=== PATIENT | male | born 1955 | race Caucasian/White ===

== ENCOUNTER → 2016-05-16 | Outpatient (CLI) | payer OTHER ==
--- NOTE | 2016-05-17 06:02 | PAP/PSG TECHNICIAN REPORT ---
[facility] Leasing Sales Consultant Polysomnogram Report Study name: None Report date: 05/17/2016 Study date: 05/16/2016 Referring Physician: SRNII VILLAGOMEZ DO, DO Name: DRISS ROBERTS Interpreting Physician: Srini Villagomez D.O. Date of : 1955 Leasing Sales Consultant: DARRIN Agudelo. Sex: Male Age: 60 StudyType: PSG Weight: 285 lbs Height: 60 years, Height 6' 0" Neck Circum:18.25inches BMI: 38.65 Medications: Amlodipine Besylate 2.5mg, Atorvastatin 80mg, Bupropion HCl ER 150mg, Clopidogrel Bisulfate 75mg, Furosemide 40mg, Klor -Con M 20-20 MEQ, Lisinopril 5mg, Tamsulosin HCl 0.4mg Patient History Study started on room air with no ETCO2 monitoring in room #6. 60 yr old male here tonight for a diagnostic psg. He complains of EDS and dry mouth in the mornings. He states that he is a mouth breather. His mother has sleep apnea. He is a smoker and some "spots" were found in his lungs on a recent scan, according to the patient. He can fall asleep anytime of the day and never feels rested. His neck circ=18.25inches. Parameters Monitored NPSG: E1-M2, E2-M1, Fp1-M2, Fp2-M1, F3-M2, F4-M2, F4-M1, C3-M2, C4-M2, C4-M1, O1-M2, O2-M2, O2-M1, T3-M2, T4-M1, P3-M2, P4-M1, CHIN1, CHIN2, HR, EKG, Legs, PFLOW, SNOR, FLOW, CFLOW, Tidal Volume, THOR, ABDO, SpO2, PLTH, CPRESS, ETCO2 Wave, ETCO2, pH Sleep Architecture Sleep Stages Time at Lights Off 9:56:00 PM STAGES Time (min.) TST (%) Time at Lights On 5:17:00 AM Wake 162.0 -- Total Recording Time (TRT) 441.00 min. N1 13.5 5 Total Sleep Period (TSP) 379.5 min. N2 157.0 56 Total Sleep Time (TST) 279.0min. N3 73.0 26 Awake Time 162.0 min. REM 35.5 13 Wake after Sleep Onset 100.5 min. Sleep Efficiency (SE) 63 % Sleep Onset Latency (TIO) 61.5 min. Number of Stage 1 Shifts None Awakenings 10 Stage Changes 49 Number of REM periods 7 REM 35.5 13 REM Latency 84.0 min. NREM 243.5 87 Body Position Analysis Supine Right Left Side Prone Vertical Total Sleep Time (min.) 50.9 196.0 83.0 279.00 0.0 0.0 Total Sleep Time (%) 0% 70% 30% 100 0% N/A% Total Sleep Time REM (min.) 0.0 26.0 9.5 None 0.0 0.0 Total Sleep Time NREM (min.) 0.0 170.0 73.5 None 0.0 0.0 Intermittent Wake (min.) 50.9 23.1 88.0 None 0.0 0.0 Total Sleep Period (%) 0% None None None None None Arousals Myoclonus (PLM) * Events Count Index Events Count Index Spontaneous 8 2 Events Awake (PLMW) 131 48.5 Respiratory 0 0.2 Events Asleep w/ Arousal (PLMA) 2 0.4 PLM 2 0 Events Asleep w/o Arousal (PLMS) 80 17.2 Snoring 2 0 Total Asleep 82 17.6 Total 12 3 Total 213 29 Respiratory Analysis * CA OA MA CH H RERA Total Count 0 1 0 0 11 0 12 Index 0.0 0.2 0.0 0 2.4 0 2.6 Mean Duration 0.0 55.9 0.0 0.00 16.7 0.0 20.0 Longest Duration 0.0 55.9 0.0 0.00 0.0 0.0 55.9 Respiratory Event Summary Total Supine ~Supine Right Left Prone REM NREM Apneas Count 1 N/A 1 1 0 N/A 0 1 Index 0.2 N/A 0 0.3 0.0 N/A 0 0 Hypopneas (4% Desat) Count 11 N/A 11 6 5 N/A 11 0 Index 2.4 N/A 2 1.8 3.6 N/A 18.6 0.0 Apneas & All Hypopneas Count 12 N/A 12 7 5 N/A 11 1 Index 2.6 N/A 3 2 4 N/A 18.6 0.2 Respiratory Events (Post Office Markup Clerk+All Hyp+RERA) Count 12 N/A 12 7 5 N/A 11 1 Index 2.6 N/A 3 2.1 3.6 N/A 18.6 0.2 Respiratory Related Arousal Count 0 N/A 1 1 0 N/A 1 0 Index 0.2 N/A 0 0 0 N/A 2 0 Snoring Analysis Supine Right Left Prone REM NREM Total Snore duration 12.8 min Snores count N/A 533 412 N/A 17 928 945 Snore mean duration 0.8 Sec Snores index N/A 163 298 N/A 28.7 228.7 203.2 TST with snoring (%) 4.6% Desaturation Event Summary: Minimum %SpO2 Event Count Mean/Min/Max Duration(sec.) Desaturation Index % Time In Bed > 90 31 35.7 / 18.0 / 57.8 70.1 6.2 86 - 90 40 29.1 / 8.8 / 56.0 8.3 66.9 81 - 85 4 29.2 / 13.0 / 56.0 2.1 26.8 76 - 80 0 N/A 0.0 0.1 71 - 75 0 N/A 0.0 0.0 66 - 70 0 N/A 0.0 0.0 61 - 65 0 N/A 0.0 0.0 56 - 60 0 N/A 0.0 0.0 51 - 55 0 N/A 0.0 0.0 < 50 0 N/A 0.0 0.0 Total REM NREM Awake <50% 0.0 min. 0.0 min. 0.0 min. 0.0 min. 51 - 60% 0.0 min. 0.0 min. 0.0 min. 0.0 min. 61 - 70% 0.0 min. 0.0 min. 0.0 min. 0.0 min. 71 - 80% 0.3 min. 0.2 min. 0.0 min. 0.1 min. 81 - 90% 404.3 min. 33.7 min. 238.5 min. 132.1 min. 91 - 100% 26.5 min. 1.6 min. 4.7 min. 20.3 min. Average 87 86 87 88 Minimum SpO2 78 78 83 78 Desaturation Event Index 8.3 16.9 3.7 13.7 # Desat. Events below 89% 55 10 14 31 Time(%) with Saturation below 89% 80.1 6.3 52.0 21.9 Time(min.) with Saturation below 89% 345.4 27.0 224.0 94.4 Time (mins) REM (mins) NREM (mins) % of TST SpO2 Below 90% 24 10 N14 94.4 SpO2 Below 88% 13 0 0 76 Heart Rate Analysis Min (bpm) Max (bpm) Average (bpm) Awake 37 237 71 NREM 61 96 69 REM 62 81 69 Overall 61 96 69 Supplemental O2 Values Minimum O2 level: None Value Start Time End Time Leasing Sales Consultant Comments Mr. Roberts slept in the right, left and supine positions. No cardiac arrhythmia noted. Some leg movements noted. No bruxism noted. Snoring was noted and scored as a 2 on a scale of 1 through 5. (0=no snoring, 5=snoring loud enough to be heard through a closed door or down the [address] way). He awoke to use the restroom 1 time during the night. He stated that he slept worse than when at home. The final report will be interpreted and signed by a sleep physician. The completed physician report will then be placed in the patient medical record. Therapy (cm H2O) 0 TIB (min.) 441.0 TST (min.) 279.0 Sleep Onset (min.) 61.5 REM Onset From Sleep (min.) 84.0 Sleep Efficiency % 63 Wakefulness (%) 37 Wakefulness (min.) 162.0 NREM 1 (%) 5 NREM 1 (min.) 13.5 NREM 2 (%) 56 NREM 2 (min.) 157.0 NREM 3 (%) 26 NREM 3 (min.) 73.0 REM (%) 13 REM (min.) 35.5 # Arousals 12 Arousal Index 3 # Snore 945 Snore Index 203.2 AHI 2.6 AHI Supine N/A AHI Non-Supine 3 NREM AHI 0.2 REM AHI 18.6 RDI 2.6 # Obstructive Apnea 1 # Central Apnea 0 # Mixed Apnea 0 # Hypopneas 11 RERAs 0 Total Respiratory Events 20 Time Below SpO2 89% (min.) 251.0 Mean NREM SpO2 (%) 87 Mean REM SpO2 (%) 86 Mean Sleep SpO2 (%) 86 Min NREM SpO2 (%) 83 Min REM SpO2 (%) 78 Position Supine (min.) 50.9 Position Non-supine (min.) 279.0 LM Index Sleep 17.6 LM Index NREM 14.3 LM Index REM 40.6 Mean Heart Rate (bpm) 69 Min Heart Rate (bpm) 61
--- NOTE | 2016-05-20 07:44 | POLYSOMNOGRAPH REPORT ---
PRIMARY DOCTOR: Dr. Gerardo Patel. CLINICAL DATA: The patient is a 60-year-old male with a BMI of 38.65. He has a history of shortness of breath and excessive daytime somnolence. There is a family history of sleep apnea. This was an in-lab diagnostic polysomnography. SLEEP ARCHITECTURE: The total sleep period was 379.5 minutes and the total sleep time was 279.0 minutes. The sleep efficiency was moderately reduced to 63%. The sleep onset latency was prolonged to 61.5 minutes. REM latency was normal at 84 minutes. Wake after sleep onset was elevated at 100.5 minutes. Sleep consisted of stage N1 5%, stage N2 56%, stage N3 26%, stage REM 13%. AROUSAL DATA: The patient had a total of 12 arousals including 8 spontaneous arousals, 2 PLM arousals, and 2 snoring arousals. The arousal index was 3. PLM DATA: The patient had a total of 82 periodic limb movements of sleep for a PLM index of 17.6. However, there were only 2 PLMs with arousals for a PLM arousal index of only 0.4. EKG: The cardiac rhythm was normal sinus. The cardiac rates ranged from 61-96 beats per minute. No arrhythmias were noted. RESPIRATORY DATA: The patient had a total of 12 respiratory events including 1 obstructive apnea and 11 hypopneas. Hypopneas were scored by the 4% rule. The apnea-hypopnea index was 2.6 events per hour which is within the limits of normal. This would suggest no significant sleep apnea. OXIMETRY DATA: The average saturation for the night was decreased to 87%. The minimum saturation was 78%. The patient had a total of 345.4 minutes with saturations less than 89%. GRADES 7 AND 8 TEACHER'S COMMENTS: The patient slept in the right, left, and supine positions. Some leg movements were noted. No bruxism noted. Snoring was noted and scored as a 2 on a scale of 1 through 5. IMPRESSION: 1. Periodic limb movement disorder. 2. Nocturnal hypoxia. COMMENTS: The patient had no significant sleep apnea. He did have difficulty initiating sleep. Overall, his sleep efficiency was decreased. He had a modest number of limb movements but with few arousals. Thus, it is unlikely the leg movements are contributing significantly to his daytime somnolence. The patient does have significant hypoxemia for most of the night. This is not on the basis of sleep apnea. Cannot exclude underlying lung disease or obesity-hypoventilation problem. The cause for his excessive daytime somnolence cannot be determined from this overnight sleep study. RECOMMENDATIONS: 1. It is advised that the patient have a repeat overnight pulse oximetry study to determine if he is a candidate for nocturnal oxygen therapy. 2. An evaluation of other potential causes for hypoxemia should be undertaken. 3. The patient has significant elevation of body mass index. A weight reduction program is advised. 4. The patient should avoid sleeping in the supine position. MTDD
== END | disposition home or self-care (01) ==
LOC: C.NEUR 21:00
PROVIDERS: ATTEND Internal Medicine Pulmonary Disease
DX: G47.33 Obstructive sleep apnea (adult) (pediatric) (principal)

== ENCOUNTER → 2016-06-08 | Outpatient (CLI) | payer OTHER ==
[~2016-06-08] VITALS: Ht 182.9 cm; Wt 130.9 kg
[2016-06-08 08:30] VITALS: BP 119/74; PULSE 79; Ht 182.9 cm; Wt 130.9 kg
== END | disposition home or self-care (01) ==
LOC: C.NEUR 08:18
PROVIDERS: ATTEND Internal Medicine Pulmonary Disease
DX: R09.02 Hypoxemia (principal); E66.2 Morbid (severe) obesity with alveolar hypoventilation; R06.02 Shortness of breath; R91.8 Other nonspecific abnormal finding of lung field

== ENCOUNTER → 2016-06-16 | Outpatient (CLI) | payer OTHER | END | disposition home or self-care (01) | LOC: C.RC 16:47 | PROVIDERS: ATTEND Internal Medicine Pulmonary Disease | DX: R09.02 Hypoxemia (principal); E66.2 Morbid (severe) obesity with alveolar hypoventilation ==

== ENCOUNTER → 2016-07-18 | Outpatient (CLI) | payer OTHER ==
--- NOTE | 2016-07-18 12:27 | DIAGNOSTIC IMAGING REPORT ---
CT OF THE CHEST WITHOUT IV CONTRAST CLINICAL HISTORY: Lung nodules. COMPARISON STUDY: Chest CT January 29, 2016. CT DOSE: 683.71 mGycm TECHNIQUE: Axial images of the chest were obtained without IV contrast. Images were reviewed in the axial, sagittal, and coronal planes. IV contrast was not administered for this examination. FINDINGS: No enlarged axillary, mediastinal or hilar lymph nodes are present. The size of the heart is normal. Subendocardial fat within the left ventricular apex and septum is suggestive of an old infarct. There is no pericardial effusion. No pneumothorax or pleural effusion is present. There is mild emphysema. There are multiple small calcified nodules within the lungs. A final mid right middle lobe nodule shown image [id number] of January 29, 2016. An additional 3 mm right middle lobe nodule shown on image 180 is also unchanged. There are no new nodules. There is no consolidation. Bony thorax is unremarkable. A 3.9 cm cyst within the upper pole of the left kidney is better depicted on prior contrast enhanced CT. Water attenuation bilateral adrenal nodules are unchanged and likely benign. IMPRESSION: 1. No change in several noncalcified pulmonary nodules since CT of January 29, 2016. These are likely benign but a follow-up chest CT in 6 months to ensure stability is recommended. 2. Subendocardial fat within the left ventricular apex and interventricular septum consistent with an old infarct. 3. Mild emphysema. Electronically signed by: Deni Reina M.D. 07/18/2016 12:26 PM Dictated Date/Time: 07/18/2016 12:13 PM
== END | disposition home or self-care (01) ==
LOC: C.CTS 11:17
PROVIDERS: ATTEND Internal Medicine Pulmonary Disease
DX: R91.8 Other nonspecific abnormal finding of lung field (principal); J43.9 Emphysema, unspecified; F17.210 Nicotine dependence, cigarettes, uncomplicated

== ENCOUNTER → 2016-08-11 | Outpatient (CLI) | payer OTHER | END | disposition home or self-care (01) | LOC: C.RC 16:56 | PROVIDERS: ATTEND Internal Medicine Pulmonary Disease | DX: R09.02 Hypoxemia (principal); E66.2 Morbid (severe) obesity with alveolar hypoventilation ==

== ENCOUNTER → 2017-02-02 | Outpatient (CLI) | payer OTHER ==
--- NOTE | 2017-02-02 08:48 | DIAGNOSTIC IMAGING REPORT ---
(CHEST) THORAX WITHOUT CT DOSE: 769.56 mGy.cm CLINICAL HISTORY: 61 years-old Male with R91.[address] lung nodules on CT to be done in 6 months [id number]. Follow-up study to assess pulmonary nodules TECHNIQUE: Multiaxial CT images of the chest were performed without contrast. A dose lowering technique was utilized adhering to the principles of ALARA. COMPARISON: Chest CT 07/18/2016 and 01/29/2016. FINDINGS: Mildly prominent appearance of the thyroid isthmus without discrete thyroid nodule identified. There is no thoracic adenopathy identified. Heart is normal in size. Subendocardial mural fatty changes of the left ventricular apex and septal wall is compatible with remote infarction. Coronary arterial disease is seen within a three-vessel distribution. No aortic aneurysm. There is moderate atherosclerotic plaquing of the thoracic aorta. Multiple calcified granulomas are present within the bilateral lungs. Mild biapical pleural-parenchymal scarring with mild upper lobe predominant paraseptal and centrilobular emphysematous disease. There is no pneumothorax, pleural effusion, focal airspace consolidation or overt pulmonary edema. Minimal subsegmental bibasilar atelectasis. Partially calcified 7 mm nodule of the basal right lower lobe seen on image 218 series 4, unchanged. Unchanged 5 mm nodule of the lateral segment right middle lobe on image 200 series 4. 2 mm nodule of the right middle lobe image 170 series 4 is also unchanged. No new or enlarging pulmonary nodules identified. Central airways are patent. No acute abnormality of the imaged upper abdomen. Nonobstructing 2 mm calculus of the superior pole left kidney. Cyst of the superior pole left kidney is unchanged. Mild colonic diverticulosis without diverticulitis. Soft tissues are unremarkable. Bones appear intact. IMPRESSION: 1. Emphysema without acute intrathoracic abnormality identified. 2. Several noncalcified nodules are again seen which are unchanged dating back to study dated 01/29/2016 suggesting benign etiology. 3. Prior granulomatous disease. 4. Remote left ventricular apical and septal infarction. 5. Mild colonic diverticulosis. 6. Left nephrolithiasis. Electronically signed by: Isaac Leach M.D. 02/02/2017 8:47 AM Dictated Date/Time: 02/02/2017 8:37 AM
== END | disposition home or self-care (01) ==
LOC: C.CTS 08:26
PROVIDERS: ATTEND Internal Medicine Pulmonary Disease
DX: R91.8 Other nonspecific abnormal finding of lung field (principal); J43.9 Emphysema, unspecified; K57.30 Diverticulosis of large intestine without perforation or abscess without bleeding; N20.0 Calculus of kidney